=== PATIENT | female | born 1985 | race African-American/Black ===

== ENCOUNTER 2022-09-28 11:12 | Emergency (ER) | payer MEDICAID ==
[~2022-09-28] VITALS: Ht 154.9 cm; Wt 75.0 kg
[2022-09-28 11:52] LABS: APPEARANCE,URINE HAZY (CLEAR); BILIRUBIN,URINE NEGATIVE (NEGATIVE); GLUCOSE, URINE (UA) NEGATIVE (NEGATIVE); KETONES,URINE =>150 mg/dL (NEGATIVE); LEUKOCYTE ESTERASE ,URINE LARGE (NEGATIVE); NITRATE,URINE NEGATIVE (NEGATIVE); OCCULT BLOOD,URINE SMALL (NEGATIVE); PH,URINE 6.5 (5.0-8.0); PROTEIN,URINE 100-200,SEE CONFIRM mg/dL (NEGATIVE); SPECIFIC GRAVITIY, URINE 1.025 (1.003-1.030); UROBILINOGEN,URINE <=1.0 mg/dL (<=1.0)
[2022-09-28 12:03] LABS: SQUAMOUS EPITHELIAL CELL,UR Few /LPF (None Seen); SULFOSALICYLIC ACID,URINE 2+ (Negative)
[2022-09-28 12:05] LABS: BACTERIA,URINE Moderate /HPF (None Seen); RBC,URINE 0-2 /HPF (0-2); WBC,URINE >100 /HPF (0-5)
[2022-09-28 12:53] LABS: BASOPHILS % (AUTO) 0.3 % (0.0-2.0); EOSINOPHILS % (AUTO) 0.8 % (1.0-6.0); HEMATOCRIT 38.4 % (36-46); HEMOGLOBIN 12.8 g/dL (12.0-16.0); LYMPHOCYTES # (AUTO) 1.9 K/uL (1.0-4.8); MEAN CORPUSCULAR HEMOGLOBIN 30.1 pg (26.0-34.0); MEAN CORPUSCULAR HGB CONC 33.3 G/dL (31.0-37.0); MEAN CORPUSCULAR VOLUME 91 fL (80-100); MONOCYTES # (AUTO) 0.5 K/uL (0.1-1.0); NEUTROPHILS # (AUTO) 4.6 K/uL (1.8-7.7); NEUTROPHILS % (AUTO) 64.9 % (40.0-70.0); PLATELET COUNT (AUTO) 313 K/uL (150-450); RED BLOOD CELL COUNT(AUTO) 4.24 MIL/uL (4.00-5.20)
[2022-09-28 13:09] LABS: ANION GAP 12 mmol/L (8-16); CALCIUM, TOTAL 9.2 mg/dL (8.8-10.5); CARBON DIOXIDE 24 mmol/L (22-29); CHLORIDE 101 mmol/L (98-107); CREATININE 0.54 mg/dL (0.60-1.30); GLUCOSE,RANDOM 80 mg/dL (70-110); POTASSIUM 3.3 mmol/L (3.5-5.1); SODIUM SERUM 137 mmol/L (136-145); UREA NITROGEN, BLOOD 4 mg/dL (7-18)
[2022-09-28 13:13] LABS: GLOMERULAR FILTR. RATE CALC > 60 mL/min (>60)
[2022-09-28 13:37] LABS: HCG,QUANTITATIVE 128854 mIU/mL (0-6)
[2022-09-28] MEDS ORDERED: NITR-75 PO (16:15)
[2022-09-28 17:05] VITALS: BP 125/75
== END 2022-09-28 17:07 | disposition home or self-care (01) ==
LOC: EMS 11:22
DX: O23.41 Unspecified infection of urinary tract in pregnancy, first trimester (principal); R30.0 Dysuria; Z3A.08 8 weeks gestation of pregnancy
CPT/HCPCS: 76801; 76817; 80048; 81001; 81002; 84702; 85025; 87086; 87186; 96374; 96375; 99285

== ENCOUNTER 2023-05-05 19:19 | Emergency (ER) | payer MEDICAID ==
[~2023-05-05] VITALS: Ht 152.4 cm; Wt 81.8 kg
[~2023-05-05 19:19] MED LIST: ACET-2080 PO; IBUP-1554 PO; PENI500T2 PO
[2023-05-05 21:42] LABS: COVID AG,FIA SOURCE NASAL SWAB
[2023-05-05 22:04] LABS: SARS-COV2 (COVID) ANTIGEN,FIA Negative (Negative)
[2023-05-05 23:04] VITALS: TEMP 98
[2023-05-05] MEDS ORDERED: ERYT3.5O8 OU (23:06)
[2023-05-06] VITALS: BP 135/79; PULSE 72; RESP 18
== END 2023-05-06 00:13 | disposition home or self-care (01) ==
LOC: EMS 19:20
DX: H10.9 Unspecified conjunctivitis (principal); Z20.822 Contact with and (suspected) exposure to COVID-19
CPT/HCPCS: 99283

== ENCOUNTER 2024-03-13 07:36 | Emergency (ER) | payer MEDICAID ==
[~2024-03-13] VITALS: Ht 162.6 cm; Wt 85.0 kg
[~2024-03-13 07:36] MED LIST changes: +ERYT3.5O8 OU
[2024-03-13 07:37] VITALS: BP 132/78; PULSE 74; RESP 16; TEMP 98.4
[2024-03-13] MEDS: OxyCODONE HCL/ACETAMINOPHEN 5-325 MG TABLET PO ONE (09:05)
[2024-03-13] MEDS: PENICILLIN V POTASSIUM 500 MG TABLET PO ONE (09:05)
[2024-03-13] MEDS ORDERED: PERCT PO (09:17)
[2024-03-13] MEDS ORDERED: PENI500T2 PO (09:17)
== END 2024-03-13 09:40 | disposition home or self-care (01) ==
LOC: EMS 07:39
DX: K01.1 Impacted teeth (principal); K08.89 Other specified disorders of teeth and supporting structures
CPT/HCPCS: 99283